=== PATIENT | male | born 1965 | race African-American/Black ===

== ENCOUNTER → 2020-01-08 | Outpatient (CLI) | payer MEDICARE, MEDICAID ==
[2020-01-08 15:26] LABS: BASOPHIL % 1.2 % (0.0-0.2); EOSINOPHIL # 0.1 10^3/uL (0.0-0.2); EOSINOPHIL % 3.4 % (0.0-5.0); LYMPHOCYTES # 0.99 10^3/uL1 (1.0-4.8); LYMPHOCYTES % 30.7 % (24.0-44.0); MEAN CORP HGB 29.5 pg (26-34); MONOCYTES # 0.5 10^3/uL (0.3-0.8); MONOCYTES % 14.3 % (5.0-12.0); NEUTROPHIL # 1.6 10^3/uL (1.8-7.7); NEUTROPHILS % 50.1 % (41.0-85.0); PLATELET COUNT 220 10^3/uL (150-400); RED CELL DISTRIBUTION WIDTH 12.3 % (11.5-14.5)
== END | disposition home or self-care (01) ==
LOC: NPLAB 14:38
PROVIDERS: ATTEND Internal Medicine
DX: R45.1 Restlessness and agitation (principal); Z00.00 Encounter for general adult medical examination without abnormal findings; R53.1 Weakness
CPT/HCPCS: 36415; 80053; 85025

== ENCOUNTER → 2021-07-29 | Outpatient (CLI) | payer MEDICARE, MEDICAID ==
[2021-07-29 14:34] LABS: BASOPHIL % 0.6 % (0.0-0.2); EOSINOPHIL # 0.2 10^3/uL (0.0-0.2); EOSINOPHIL % 3.8 % (0.0-5.0); LYMPHOCYTES # 1.38 10^3/uL1 (1.0-4.8); LYMPHOCYTES % 29.2 % (24.0-44.0); MEAN CORP HGB 29.1 pg (26-34); MONOCYTES # 0.6 10^3/uL (0.3-0.8); MONOCYTES % 12.1 % (5.0-12.0); NEUTROPHIL # 2.6 10^3/uL (1.8-7.7); NEUTROPHILS % 54.3 % (41.0-85.0); PLATELET COUNT 249 10^3/uL (150-400); RED CELL DISTRIBUTION WIDTH 12.3 % (11.5-14.5)
[2021-07-29 14:43] LABS: BILIRUBIN,URINE NEGATIVE (NEGATIVE)
[2021-07-29 15:01] LABS: CARBON DIOXIDE 26.2 mmol/L (20.0-32)
== END | disposition home or self-care (01) ==
LOC: NPLAB 11:40
PROVIDERS: ATTEND Internal Medicine
DX: I69.959 Hemiplegia and hemiparesis following unspecified cerebrovascular disease affecting unspecified side (principal); F25.1 Schizoaffective disorder, depressive type; F63.81 Intermittent explosive disorder; F41.9 Anxiety disorder, unspecified
CPT/HCPCS: 80053; 81003; 85025

== ENCOUNTER → 2023-04-28 | Outpatient (CLI) | payer MEDICARE, MEDICAID ==
[2023-04-28 11:38] LABS: HEMATOCRIT(ML) 43.6 % (37.0-53.0); MEAN CORP HGB 29.5 pg (26-34); MEAN CORP HGB CONCENTRATION 32.1 g/dL (33-36.5); MEAN CORP VOLUME 91.8 fL (78-100); RED BLOOD CELL 4.75 10^6/uL (4.50-5.90); RED CELL DISTRIBUTION WIDTH 12.5 % (11.5-14.5); WHITE BLOOD CELL 4.3 10^3/uL (4.5-11.0)
[2023-04-28 11:55] LABS: ALBUMIN(ML) 3.4 g/dL (3.4-5.0); ALBUMIN/GLOBULIN RATIO 0.85; ANION GAP 15.8; CALCIUM 9.4 mg/dL (8.4-10.5); CARBON DIOXIDE 23.7 mmol/L (20.0-32); CREATININE SERUM 1.11 mg/dL (0.59-1.40); POTASSIUM 4.5 mmol/L (3.6-5.2)
== END | disposition home or self-care (01) ==
LOC: NPLAB 11:28
PROVIDERS: ATTEND Internal Medicine
DX: I67.9 Cerebrovascular disease, unspecified (principal); E78.5 Hyperlipidemia, unspecified; F63.81 Intermittent explosive disorder; F25.1 Schizoaffective disorder, depressive type
CPT/HCPCS: 36415; 80053; 85027

== ENCOUNTER 2023-06-11 12:39 | Emergency (ER) | payer MEDICARE, MEDICAID ==
[~2023-06-11] VITALS: Ht 193 cm; Wt 113.4 kg
[2023-06-11 12:39] VITALS: BP 116/60; PULSE 70; RESP 18; TEMP 98; O2SAT 99
== END 2023-06-11 14:02 ==
LOC: ER 12:39
DX: M79.645 Pain in left finger(s) (principal)
CPT/HCPCS: 99283; 73130-LT